=== PATIENT | male | born 1940 | race Caucasian/White ===

== ENCOUNTER 2022-11-06 14:54 | Inpatient (IN) ==
[2022-11-06 15:42] LABS: ABS Monocytes 0.6 10^3/uL (0.0-1.1); ABS Neutrophils 3.8 10^3/uL (1.5-7.6); Eosinophil % 0.9 %; Hematocrit 42.9 % (38-53); Hemoglobin 14.4 g/dL (13.2-16.3); Lymphocyte % 18.3 %; Mean Corpuscular Hemoglobin 30.9 pg (27-33); Mean Corpuscular Hgb Conc 33.5 g/dL (31-36); Mean Corpuscular Volume 92.3 fL (80-97); Mean Platelet Volume 7.5 fL (7.5-11.2); Platelet Count 169 10^3/uL (150-450); Red Blood Count 4.65 10^6/uL (4.06-5.63); Red Cell Distribution Width 13.4 % (12-17); White Blood Count 5.5 10^3/uL (3.6-10.2)
[2022-11-06 16:20] LABS: Albumin 3.8 g/dL (3.2-5.2); Albumin/Globulin Ratio 1.3 (1-3); Calcium 9.5 mg/dL (8.6-10.3); Creatinine, Serum 1.01 mg/dL (0.67-1.17); Globulin 2.9 g/dL (2-4); Potassium 3.2 mmol/L (3.5-5.0); Total Bilirubin 0.6 mg/dL (0.2-1.0); Total Protein 6.7 g/dL (6.4-8.9); eGFR CKD-EPI 74.7 (>60)
[2022-11-06] MEDS ORDERED: Iohexol 350 (CONTRAST) 500 ML MDV IV ONE (17:56)
[2022-11-06] MEDS ORDERED: Lactated Ringers 1000 ml BAG 1,000 ML IV SCH (18:00)
[2022-11-06 18:24] LABS: HDL Cholesterol 40.4 mg/dL
[2022-11-06] MEDS: Enoxaparin 40 MG/0.4 ML SYR SUBCUT SCH (20:06)
[2022-11-07 06:27] LABS: Calcium 8.9 mg/dL (8.6-10.3); Creatinine, Serum 1.01 mg/dL (0.67-1.17); Potassium 3.3 mmol/L (3.5-5.0); eGFR CKD-EPI 74.7 (>60)
[2022-11-07] MEDS: KCL 20 MEQ/100 ML IVPREMIX 20 MEQ/100 ML BAG IV SCH ×2 (13:37→21:15)
[2022-11-07] MEDS: Enoxaparin 40 MG/0.4 ML SYR SUBCUT SCH (17:23)
[2022-11-07] MEDS ORDERED: Metoprolol Tartrate 5 mg VIAL 5 ml VIAL (1 mg/ml) IV ONE (17:39)
[2022-11-08 06:23] LABS: ABS Eosinophils 0.2 10^3/uL (0.0-0.5); ABS Lymphocytes 1.2 10^3/uL (1.0-4.8); ABS Monocytes 0.5 10^3/uL (0.0-1.1); ABS Neutrophils 3.7 10^3/uL (1.5-7.6); Hemoglobin 13.9 g/dL (13.2-16.3); Lymphocyte % 21.4 %; Mean Corpuscular Hemoglobin 31.4 pg (27-33); Mean Corpuscular Volume 92.2 fL (80-97); Mean Platelet Volume 7.6 fL (7.5-11.2); Nucleated Red Blood Cells % 0.1 /100 WBC (0.0-0.4); Platelet Count 153 10^3/uL (150-450); Red Blood Count 4.45 10^6/uL (4.06-5.63); Red Cell Distribution Width 13.1 % (12-17); White Blood Count 5.7 10^3/uL (3.6-10.2)
[2022-11-08 06:43] LABS: Calcium 8.9 mg/dL (8.6-10.3); Creatinine, Serum 0.9 mg/dL (0.67-1.17); Potassium 3.8 mmol/L (3.5-5.0); eGFR CKD-EPI 85.8 (>60)
[2022-11-08] MEDS ORDERED: Iohexol 350 (CONTRAST) 500 ML MDV IV ONE (10:50)
[2022-11-08] MEDS: Enoxaparin 40 MG/0.4 ML SYR SUBCUT SCH (17:36)
[2022-11-08] MEDS: Erythromycin OPTH OINT APPLIC OINT LEFT EYE SCH ×2 (17:37→21:21)
[2022-11-09] MEDS: Erythromycin OPTH OINT APPLIC OINT LEFT EYE SCH ×3 (10:03→20:49)
[2022-11-09] MEDS: Enoxaparin 40 MG/0.4 ML SYR SUBCUT SCH (17:32)
[2022-11-10] MEDS: Erythromycin OPTH OINT APPLIC OINT LEFT EYE SCH ×3 (10:44→22:34)
[2022-11-10] MEDS: Enoxaparin 40 MG/0.4 ML SYR SUBCUT SCH (22:34)
[2022-11-11] MEDS: Erythromycin OPTH OINT APPLIC OINT LEFT EYE SCH ×3 (08:39→20:09)
[2022-11-11] MEDS: Enoxaparin 40 MG/0.4 ML SYR SUBCUT SCH (17:20)
[2022-11-12] MEDS: Erythromycin OPTH OINT APPLIC OINT LEFT EYE SCH ×3 (09:12→20:56)
[2022-11-12] MEDS ORDERED: Pantoprazole VIAL 40 MG VIAL IV ONE (16:46)
[2022-11-12] MEDS: Enoxaparin 40 MG/0.4 ML SYR SUBCUT SCH (18:16)
[2022-11-13] MEDS: Erythromycin OPTH OINT APPLIC OINT LEFT EYE SCH (08:23)
[2022-11-13 10:35] VITALS: BP 130/68
== END 2022-11-13 11:20 | DRG 65 ==
LOC: EDHOLD 14:54 → ED 14:54 → SUATTDRO 17:21 → MEDTELE 19:31 → SUATTDRO 11-08 12:39 → MEDTELE 11-12 17:00
PROVIDERS: ADMIT Internal Medicine; ATTEND Internal Medicine

== ENCOUNTER 2023-04-10 13:22 | Observation (INO) ==
[2023-04-10 14:35] LABS: ABS Lymphocytes 0.9 10^3/uL (1.0-4.8); ABS Monocytes 0.7 10^3/uL (0.0-1.1); ABS Nucleated RBC 0.01 10^3/ul; Eosinophil % 0.3 %; Hematocrit 45.1 % (38-53); Hemoglobin 15.1 g/dL (13.2-16.3); Lymphocyte % 15.4 %; Mean Corpuscular Hemoglobin 30.7 pg (27-33); Mean Corpuscular Hgb Conc 33.5 g/dL (31-36); Mean Corpuscular Volume 91.6 fL (80-97); Mean Platelet Volume 7.1 fL (7.5-11.2); Nucleated Red Blood Cells % 0.1 %/100WBC (0.0-0.8); Platelet Count 145 10^3/uL (150-450); Red Blood Count 4.92 10^6/uL (4.06-5.63); Red Cell Distribution Width 14.2 % (12-17); White Blood Count 5.6 10^3/uL (3.6-10.2)
[2023-04-10] MEDS ORDERED: Lactated Ringers 1000 ml BAG 1,000 ML IV ONE (14:57)
[2023-04-10 15:09] LABS: Albumin 4.3 g/dL (3.2-5.2); Albumin/Globulin Ratio 1.4 (1-3); Calcium 9.3 mg/dL (8.6-10.3); Creatinine, Serum 1.43 mg/dL (0.67-1.17); Globulin 3.1 g/dL (2-4); Potassium 4.3 mmol/L (3.5-5.0); Total Bilirubin 0.5 mg/dL (0.2-1.0); Total Protein 7.4 g/dL (6.4-8.9); eGFR CKD-EPI 48.9 (>60)
[2023-04-10 15:44] LABS: C Reactive Protein 21.98 mg/L (<8.01)
[2023-04-10 16:08] LABS: High Sensitivity Troponin 1 Hr 30 pg/mL (<20)
[2023-04-10] MEDS ORDERED: Dextran 70/Hypromellose Tears Eye Drops 15 ml BTL (for Artificials Tears) BOTH EYES PRN (17:22)
[2023-04-10] MEDS: Enoxaparin 40 MG/0.4 ML SYR SUBCUT SCH (17:25)
[2023-04-10] MEDS: Lactated Ringers 1000 ml BAG 1,000 ML IV SCH (18:32)
[2023-04-11 06:25] LABS: Hematocrit 39.9 % (38-53); Hemoglobin 13.3 g/dL (13.2-16.3); Mean Corpuscular Hemoglobin 30.3 pg (27-33); Mean Corpuscular Hgb Conc 33.4 g/dL (31-36); Mean Corpuscular Volume 90.6 fL (80-97); Mean Platelet Volume 7.4 fL (7.5-11.2); Platelet Count 111 10^3/uL (150-450); Red Blood Count 4.41 10^6/uL (4.06-5.63); Red Cell Distribution Width 14.2 % (12-17); White Blood Count 5.1 10^3/uL (3.6-10.2)
[2023-04-11 07:04] LABS: Creatinine, Serum 0.94 mg/dL (0.67-1.17); Potassium 3.9 mmol/L (3.5-5.0); eGFR CKD-EPI 80.9 (>60)
[2023-04-11] MEDS: Lactated Ringers 1000 ml BAG 1,000 ML IV SCH (13:02)
[2023-04-11] MEDS: Enoxaparin 40 MG/0.4 ML SYR SUBCUT SCH (16:25)
[2023-04-12 10:00] VITALS: BP 144/68
== END 2023-04-12 12:55 ==
LOC: ED 13:22 → EDHOLD 15:33 → INTOOBSV 15:33 → MED 17:08
PROVIDERS: ADMIT Internal Medicine; ATTEND Internal Medicine